=== PATIENT | female | born 1985 | race Caucasian/White ===

== ENCOUNTER 2019-02-10 13:01 | Emergency (ER) | payer BC ==
[2019-02-10] MEDS ORDERED: HYDROcodone/Acetaminophen 5/325 mg Tablet ONE (13:47)
--- NOTE | 2019-02-10 14:51 | MRI ---
MR the lumbar spine without contrast INDICATION: Low back pain with dragging of the right foot COMPARISON: None. TECHNIQUE: Multiplanar multisequence MR images were obtained of lumbar spine without IV contrast. FINDINGS: Bone marrow: Bone marrow signal intensity appears within normal limits. Distal spinal cord and conus: Normal. The conus seen to terminate at L1. Visualized retroperitoneum and paraspinal soft tissues: There is a gallstone within the gallbladder. No lymphadenopathy or free fluid is identified. Vertebral levels: L5-S1: There is grade 1 anterolisthesis of L5 on S1. No definite pars defects is identified. There is advanced facet joint degenerative change. The broad-based disc bulge in addition to the grade 1 anterolisthesis and facet hypertrophy with loss of disc space height induces moderate right and sever e left neural foraminal narrowing.. L4-5: No appreciable central canal or neuroforaminal narrowing. L3-4: No appreciable central canal or neuroforaminal narrowing. L2-3: No appreciable central canal or neuroforaminal narrowing. L1-L2: No appreciable central canal or neuroforaminal narrowing. T12-L1: No appreciable central canal or neuroforaminal narrowing. IMPRESSION: 1. Advanced disc degenerative and facet osteoarthritic change at L5-S1 in addition to grade 1 anterol isthesis induces severe left and moderate right neural foraminal narrowing. 2. Cholelithiasis
[2019-02-10] MEDS ORDERED: Dexamethasone 10 MG/ML VIAL ONE (15:36)
== END 2019-02-10 16:07 | disposition home or self-care (01) ==
LOC: SCSER 13:01
DX: M54.16 Radiculopathy, lumbar region (principal); M48.061 Spinal stenosis, lumbar region without neurogenic claudication; E78.5 Hyperlipidemia, unspecified; E78.00 Pure hypercholesterolemia, unspecified; F41.9 Anxiety disorder, unspecified; F32.9 Major depressive disorder, single episode, unspecified; Z79.899 Other long term (current) drug therapy
CPT/HCPCS: 72148; 96372; J1100

== ENCOUNTER 2019-03-12 08:51 | Day surgery (SDC) | payer BC ==
[2019-03-05 13:14] VITALS: BMI 30.9
[2019-03-12] MEDS ORDERED: Midazolam HCl 2 mg/2 ml Vial ONE ×2 (10:43→10:45)
[2019-03-12] MEDS ORDERED: Bupivacaine HCl 0.5%/Epinephrine 1:200,000/PF 30 ml Vial ONE (10:44)
[2019-03-12] MEDS ORDERED: Fentanyl 100 MCG/2 ML VIAL ONE ×4 (10:45→15:01)
[2019-03-12] MEDS ORDERED: Thrombin 5000 UNITS/5 ML VIAL ONE (10:45)
[2019-03-12] MEDS ORDERED: Lidocaine 2% Jelly 5 ML TUBE ONE (10:45)
[2019-03-12] MEDS ORDERED: HYDROmorphone 0.5 MG/0.5 ML SYRINGE ONE (10:45)
[2019-03-12] MEDS ORDERED: Promethazine HCl 25 MG/ML VIAL ONE (14:01)
[2019-03-12] MEDS ORDERED: HYDROmorphone 2 MG/ML VIAL ONE (14:26)
--- NOTE | 2019-03-12 14:42 | OP ---
DATE OF PROCEDURE: 03/12/2019 TELLER SUPERVISOR: Jeffry Mckeon PA-C INDICATION: Pain. DIAGNOSES: L5-S1 spondylolisthesis with radiculopathy and back pain. PROCEDURES PERFORMED: Bilateral L5-S1 facetectomies, bilateral L5-S1 posterolateral instrumented fusion, placement of allograft, and placement of autograft. DESCRIPTION OF PROCEDURE: The patient was brought into the operating room and placed under general anesthesia. She was flipped from the supine to prone position on the operating room table. A linear incision was planned over the L5-S1 segment. After prepping and draping and after an appropriate operative pause, the incision was created. The soft tissues were swept away from midline. Self-retaining retractors were placed in the wound for optimal exposure. After confirming the appropriate level with C-arm fluoroscopy, the lamina and facet joints at L5-S1 were removed. The patient did have bilateral pars defects and therefore highly mobile segment. After decompressing the segment and identifying the pedicles at L5-S1, pedicle screws were placed with the aid of C-arm fluoroscopy. An intraoperative 3D CT scan was then performed to confirm appropriate placement of hardware. Rods were then placed across the screw heads and final tightened. Allograft and autograft material were then placed within the lateral confines of the instrumentation construct. The wound was irrigated. Hemostasis was maintained throughout. The wound was then closed in anatomic layers and a pressure dressing was applied. There were no known procedural complications. Job ID: [id number]
[2019-03-12] MEDS ORDERED: HYDROcodone/Acetaminophen 5/325 mg Tablet ONE (16:24)
== END 2019-03-12 17:00 | disposition home or self-care (01) ==
LOC: SDC 08:51
PROVIDERS: ATTEND Neurological Surgery
PROC: 0SG3071 Fusion of Lumbosacral Joint with Autologous Tissue Substitute, Posterior Approach, Posterior Column, Open Approach (ICD-10-PCS; principal; 2019-03-12)
DX: M43.17 Spondylolisthesis, lumbosacral region (principal); M54.17 Radiculopathy, lumbosacral region; Z79.899 Other long term (current) drug therapy; Z91.018 Allergy to other foods
CPT/HCPCS: 76000; J0670; J0690; J1170; J2250; J2550; J3010

== ENCOUNTER 2019-10-25 19:42 | Emergency (ER) | payer BC, SELFPAY ==
[2019-10-25] MEDS ORDERED: Morphine 4 MG/ML VIAL ONE (20:45)
[2019-10-25] MEDS ORDERED: Ketorolac Tromethamine 30 MG/ML VIAL ONE (21:47)
== END 2019-10-25 22:29 | disposition home or self-care (01) ==
LOC: ERS 19:42
DX: M54.5 Low back pain (principal); G89.29 Other chronic pain; F41.9 Anxiety disorder, unspecified; F32.9 Major depressive disorder, single episode, unspecified; E78.5 Hyperlipidemia, unspecified; E78.00 Pure hypercholesterolemia, unspecified; Z79.899 Other long term (current) drug therapy
CPT/HCPCS: 96372; 99283; J1885; J2270

== ENCOUNTER 2020-07-10 15:58 | Emergency (ER) | payer OTHER, SELFPAY ==
--- NOTE | 2020-07-10 17:00 | RAD ---
XR Finger(s) Lt Min 2 View History: Injury Comparison: None. Findings: No acute displaced fracture or malalignment. No significant soft tissue abnormality. Impression: No acute abnormality of the ring finger.
== END 2020-07-10 17:20 | disposition home or self-care (01) ==
LOC: ERS 15:58
DX: S60.042A Contusion of left ring finger without damage to nail, initial encounter (principal); E78.5 Hyperlipidemia, unspecified; X08.8XXA Exposure to other specified smoke, fire and flames, initial encounter

== ENCOUNTER 2020-09-24 19:48 | Emergency (ER) | payer SELFPAY ==
[2020-09-24] MEDS ORDERED: Fentanyl 100 MCG/2 ML VIAL ONE (22:03)
[2020-09-24] MEDS ORDERED: Lorazepam 2 MG/ML VIAL ONE (22:03)
[2020-09-24] MEDS ORDERED: Ondansetron PF 4 MG/2 ML Vial ONE (22:03)
[2020-09-24] MEDS ORDERED: Ketorolac Tromethamine 30 MG/ML VIAL ONE (22:03)
[2020-09-24 22:23] LABS: #Basophils 0.1 thou/uL (0.0-0.2); #Lymphocytes 1.9 thou/uL (1.20-3.40); #Monocytes 0.6 thou/uL (0.11-0.59); #Neutrophils 4.1 thou/uL (1.40-6.50); %Eosinophils 0.7 % (0.0-10.0); %Monocytes 8.8 % (0.0-10.0); %Neutrophils 61.5 % (42.0-75.0); Hemoglobin 13.2 g/dL (12.0-16.0); Mean Corpuscular HGB CONC 31.8 g/dL (32.0-36.0); Mean Corpuscular Volume 90.9 fL (78.0-98.0); Mean Platelet Volume 8.6 fL (7.4-10.4); Platelet Count 297 thou/uL (130-400); RBC Distribution Width 12.1 % (11.5-14.5); Red Blood Cell (RBC) Count 4.54 mill/uL (4.20-5.40); White Blood Cell (WBC) Count 6.7 thou/uL (4.8-10.8)
[2020-09-24 22:43] LABS: ALT (SGPT) 22 U/L (8-55); AST (SGOT) 23 U/L (5-34); Albumin 4.3 g/dL (3.5-5.0); Alkaline Phosphatase 77 U/L (40-110); Anion Gap 12 mmol/L (10-20); BUN (Urea Nitrogen) 9 mg/dL (7.0-18.7); Bilirubin, Total 0.5 mg/dL (0.2-1.2); Calc. Creatinine Clearance 0 mL/min (70-130); Calcium 9.4 mg/dL (7.8-10.44); Carbon Dioxide 29 mmol/L (22-29); Chloride 104 mmol/L (98-107); Globulin 3.3 g/dL (2.4-3.5); Glucose 80 mg/dL (70-105); Potassium 3.3 mmol/L (3.5-5.1); Protein, Total 7.6 g/dL (6.0-8.3); Sodium 142 mmol/L (136-145)
== END 2020-09-24 23:26 | disposition home or self-care (01) ==
LOC: ERS 19:48
DX: M54.16 Radiculopathy, lumbar region (principal); E78.5 Hyperlipidemia, unspecified
CPT/HCPCS: 80053; 85025; 85652; 86140; 96374; 96375; J1885; J2060; J2405; J3010

== ENCOUNTER 2020-09-30 09:13 | Outpatient (CLI) | payer SELFPAY | END 2020-09-30 09:14 | disposition home or self-care (01) | LOC: TBSIIMAG 09:13 | PROVIDERS: ATTEND Neurological Surgery | DX: M54.5 Low back pain (principal); M43.07 Spondylolysis, lumbosacral region; Z98.890 Other specified postprocedural states | CPT/HCPCS: 72100 ==

== ENCOUNTER 2020-11-24 09:42 | Outpatient (CLI) | payer SELFPAY ==
[~2020-11-24 09:42] MED LIST: Magnevist 469MG/ML 20 ML VIAL ONE
== END 2020-11-24 09:43 | disposition home or self-care (01) ==
LOC: TBSIIMAG 09:42
PROVIDERS: ATTEND Neurological Surgery
DX: M47.27 Other spondylosis with radiculopathy, lumbosacral region (principal); M43.17 Spondylolisthesis, lumbosacral region; Z98.1 Arthrodesis status
CPT/HCPCS: 72158; A9579